=== PATIENT | female | born 1960 | race Caucasian/White ===

== ENCOUNTER 2017-02-08 08:04 | Day surgery (SDC) | payer BC ==
[~2017-02-08 08:04] MED LIST: Buffered Lidocaine 0.9% SYRIN* 5 ML/SYR SYRINGE INTRADERM ONE
[2017-02-08] MEDS ORDERED: ceFAZolin 2 GM PREMIX (*) 2 GM/50 ML BAG IVPB ONE (08:12)
[2017-02-08] MEDS ORDERED: Midazolam* 1 MG/ML 2 ML VIAL (2 MG) ONE ×2 (08:53→09:27)
[2017-02-08] MEDS ORDERED: fentaNYL* 50 MCG/ML 2 ML VIAL (100 MCG VIAL) ONE (08:53)
[2017-02-08] MEDS ORDERED: Famotidine IV* 10 MG/ML 2 ML (20 mg) ONE (09:10)
[2017-02-08] MEDS ORDERED: Bupivacaine 0.25% SDV* 30 ML ONE (09:12)
[2017-02-08] MEDS ORDERED: BSS OPTH.SOL* BTL ONE (09:12)
[2017-02-08] MEDS ORDERED: Methylene Blue 0.5 %* 50 MG/10 ML AMP IV ONE (09:12)
[2017-02-08] MEDS ORDERED: Lidocaine 1% MPF wEPI 200,000* 30 ML SDV ONE (09:12)
[2017-02-08] MEDS ORDERED: KETAMINE HCL* 50 MG/ML 10 ML VIAL ONE (09:25)
[2017-02-08] MEDS ORDERED: Lidocaine 2% PF * 5 ML VIAL ONE (09:26)
[2017-02-08] MEDS ORDERED: Propofol* 10 MG/ML 20 ML BTL IV PUSH ONE (09:26)
[2017-02-08] MEDS ORDERED: diPHENhydraMINE MDV* 50 MG/ML VIAL ONE (09:26)
[2017-02-08] MEDS ORDERED: HYDROcodone/ACETAMIN 5-325 MG* 1 TAB PO PRN (10:04)
[2017-02-08] MEDS ORDERED: DiMENhydriNATE IV* 50 MG/ML VIAL IV PUSH PRN (10:04)
[2017-02-08] MEDS ORDERED: Acetaminophen TAB* 325 MG PO PRN (10:04)
[2017-02-08] MEDS ORDERED: PROCHLORPERAZINE INJ 5 MG/ML 2 ML VIAL IV PRN (10:04)
[2017-02-08] MEDS ORDERED: Dexamethasone IV* 4 MG/ML 1 ML (4 MG) ONE (10:05)
[2017-02-08 11:24] VITALS: BP 124/89
== END 2017-02-08 11:10 | disposition home or self-care (01) ==
LOC: OREAST 08:04
PROVIDERS: ATTEND Plastic Surgery
DX: M95.0 Acquired deformity of nose (principal); Z85.828 Personal history of other malignant neoplasm of skin; I10 Essential (primary) hypertension; E03.9 Hypothyroidism, unspecified; K21.9 Gastro-esophageal reflux disease without esophagitis; G43.909 Migraine, unspecified, not intractable, without status migrainosus; Z79.82 Long term (current) use of aspirin
CPT/HCPCS: A9270-GY; J0690; J1100; J1200; J2001; J2250; J2704; J3010

== ENCOUNTER 2017-08-26 13:24 | Emergency (ER) | payer BC ==
[2017-08-26 14:15] VITALS: BP 130/83
--- NOTE | 2017-08-26 14:38 | UC ---
Respiratory Complaint HPI - HPI Summary HPI Summary: Patient presents with complaints of 1-2 months intermittent episodes of coughing , chest congestion, and sputum production. She states she was recently treated with amoxicillin which helped temporarily. She states within the last 1-3 days her coughing has become more persistent, with increased yellow-greenish sputum and nasal discharge. She reports she has been having coughing fits, the coughing causes a short duration of headache and fatigue. Today she had increase fatigue and she states it took he all day just to get here. She denies chest pain, shortness of breath. - History of Current Complaint Chief Complaint: UCRespiratory Stated Complaint: COUGH, AND CHEST CONGESTION Time Seen by Provider: 08/26/17 14:09 Hx Obtained From: Patient Hx Last Menstrual Period: 03/24/14 Onset/Duration: Sudden Onset Timing: Intermittent Episodes Pain Intensity: 0 Character: Cough: Productive, Sputum Description: - yello-greenish Aggravating Factors: Deep Breaths, Recumbent Position Alleviating Factors: Upright Position Associated Signs And Symptoms: Positive: URI, Nasal Congestion, Sinus Discomfort - Risk Factors Pulmonary Embolism Risk Factors: Negative Cardiac Risk Factors: Negative Pseudomonas Risk Factors: Negative Tuberculosis Risk Factors: Negative - Allergies/Home Medications Allergies/Adverse Reactions: Allergies Allergy/AdvReac Type Severity Reaction Status Date / Time No Known Allergies Allergy Verified 08/26/17 14:15 Home Medications: Home Medications Cholecalciferol TAB* [Vitamin D TAB*] 4,000 unit PO DAILY 08/26/17 [History Confirmed 08/26/17] Losartan TAB* [Cozaar TAB*] 50 mg PO DAILY 08/26/17 [History Confirmed 08/26/17] PMH/Surg Hx/FS Hx/Imm Hx Previously Healthy: Yes Endocrine History: Hypothyroidism Cardiovascular History: Hypertension GI/ History: Gastroesophageal Reflux - Surgical History Surgical History: Yes Surgery Procedure, Year, and Place: Bilateral carpel tunnel release, 1999, 2000 , [facility] [place]. Exploratory laporotomy, 1979, [facility]. fatty calcium cyst removed from neck area - Family History Known Family History: Positive: Hypertension - Social History Occupation: Employed Full-time Lives: Alone Alcohol Use: Rare Substance Use Type: None Smoking Status (MU): Never Smoked Tobacco - Immunization History Most Recent Influenza Vaccination: 12/2014 Most Recent Tetanus Shot: unknown Most Recent Pneumonia Vaccination: never Review of Systems Constitutional: Negative Skin: Negative Eyes: Negative ENT: Sinus Congestion, Sinus Pain/Tenderness Respiratory: Cough Cardiovascular: Negative Gastrointestinal: Negative Genitourinary: Negative Motor: Negative Neurovascular: Negative Musculoskeletal: Negative Neurological: Negative Psychological: Negative Is Patient Immunocompromised?: No All Other Systems Reviewed And Are Negative: Yes Physical Exam Triage Information Reviewed: Yes Appearance: Well-Appearing Vital Signs: Initial Vital Signs Temp 98.7 F 08/26/17 14:10 Pulse 71 08/26/17 14:10 Resp 16 08/26/17 14:10 BP 130/83 08/26/17 14:10 Pulse Ox 98 08/26/17 14:10 Vital Signs Reviewed: Yes Eye Exam: Normal ENT Exam: Normal ENT: Positive: Nasal congestion, Nasal drainage Neck exam: Normal Neck: Positive: 1 Respiratory Exam: Normal Cardiovascular Exam: Normal Abdominal Exam: Normal Musculoskeletal Exam: Normal Neurological Exam: Normal Skin Exam: Normal UC Diagnostic Evaluation - Laboratory O2 Sat by Pulse Oximetry: 98 Respiratory Course/Dx - Course Course Of Treatment: Patient presents with 1-2 months of intermittent episodes on respiratory complaints. She had xray today was negative, which was reviewed with the patient. Her clinical findings are consistent with bronchitis. She was treated with doxycycline 100 mg by mouth twice daily x 10 days, medrol dose pack, tessalon pearls 100 mg by mouth three times daily as needed, and albuterol hft 1-2 inhalation every 4-6 hours as needed. She was also referred to an automated teller manager as her symptoms given they are labile, and she has already be prescribed sinulair i feel she woud benefit from an allergy consult. - Differential Dx/Diagnosis Differential Diagnosis/HQI/PQRI: Bronchitis Provider Diagnoses: bronchitis. suspect reactive airway Discharge - Sign-Out/Discharge Documenting (check all that apply): Discharge/Admit/Transfer - Discharge Plan Condition: Stable Disposition: HOME Prescriptions: Albuterol HFA INHALER* [Ventolin HFA Inhaler*] 1 puff INH Q4H PRN #1 mdi PRN Reason: Cough Benzonatate CAP* [Tessalon 100 MG CAP*] 100 mg PO TID PRN #14 cap PRN Reason: couhg DOXYcycline CAP(*) [DOXYcycline 100MG CAP(*)] 100 mg PO BID #20 cap methylPREDNISolone [Medrol Dosepak 4 MG*] 0 mg PO .SEE JF INSTRUCTION #1 tab Patient Education Materials: Acute Bronchitis (ED) Referrals: Joel Rosado MD [Primary Care Provider] - Christiano Alfred MD [Medical Doctor] - - Billing Disposition and Condition Condition: STABLE Disposition: HOME
--- NOTE | 2017-08-26 14:48 | RAD ---
INDICATION: Cough COMPARISON: February 10, 2015 TECHNIQUE: PA and lateral dual-energy views were obtained. FINDINGS: Bones/Soft Tissues: There are no acute bony findings. There is a scoliotic deformity. There is spurring of the midthoracic spine Cardiomediastinal: The cardiomediastinal silhouette is normal. Lungs: There are no infiltrates. Pleura: There are no pleural effusions. Other: None IMPRESSION: NO ACTIVE DISEASE.
== END 2017-08-26 15:00 | disposition home or self-care (01) ==
LOC: UCEAST 13:24
DX: J40 Bronchitis, not specified as acute or chronic (principal); R09.81 Nasal congestion; E03.9 Hypothyroidism, unspecified; I10 Essential (primary) hypertension; K21.9 Gastro-esophageal reflux disease without esophagitis
CPT/HCPCS: 71046; 99212; G0463

== ENCOUNTER 2017-12-30 14:16 | Emergency (ER) | payer BC ==
--- OUTSIDE RECORDS SUMMARY | 2017-12-30 14:20 | XMS REPORT | Continuity of Care Document ---
:1960 External Reference #:[id number] Author Name Joel Rosado MD Address [address] [place] [address] Care Team Providers Name Role Phone Joel Rosado MD Primary Care Physician Unavailable Payers Type Date Identification Numbers Payment Provider Subscriber Effective: Policy Number: [id number] Jairo Lucero 2013 Expires: 2016 Group Name: [employer] [address] [address] PayID: [id number] KENNETH Mitchell [id number] Effective: 2016 Policy Number: [id number] Laurence NICOLE Lucero Group Name: [employer] [address] [address] PayID: [id number] KENNETH Mitchell [id number] Onset: 2017 Policy Number: [id number] [employer] Darlyn Lucero PayID: [id number] [address] [place] [address] Onset: 2017 Policy Number: [id number] [employer] Darlyn Lucero PayID: [id number] 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 [employer] Tobacco Use Start: Unknown Never Smoked Cigarettes ETOH Use Denies alcohol use ETOH Use Rarely consumes alcohol Exercise Type/Frequency Does not exercise Allergies, Adverse Reactions, Alerts Date Description Reaction Status Severity Comments 11/01/2017 Seasonal Active Medications Medication Date Status Form Strength Qnty SIG Indications Ordering Provider Losartan 09/27/ Active Tablets 50mg 30tabs take one I10 Joel Potassium 2018 tablet by Alonzo mouth every MD day for high blood pressure Atenolol 02/05/ Active Tablets 50mg 45tabs 1/2 by Isi Rea mouth every , CASH POSTING REPRESENTATIVE-C D3 Maximum / Active Capsules 4000Unit 30caps 1 po qd Joel Strength 0000 MD Alonzo Aspir-81 / Active Tablets DR 81mg 1 by mouth Unknown 0000 every day Botox / Active Solution Injection Unknown 0000 Rec every 3 months Sumatriptan / Active Tablets 50mg take one Unknown Succinate 0000 tablet by mouth once at onset of migraine, may repeat every 1 to 2 hours if needed, no more than 4 tablets in 24 arley Synthroid / Active Tablets 50mcg 30tabs Take One Joel 0000 Tablet By Rubin Rosado Every MD Day Vitamin B12 / Active Tablets 2500mcg 1 by mouth Unknown 0000 Sub every day Omeprazole / Active Capsules 40mg 30caps Take One Joel [address] DR Capsule By Rubin Rosado Every MD Day Montelukast / Active Tablets 10mg 30tabs Take One Joel Sodium 0000 Tablet By Alonzo Mouth AT MD Bedtime Nifedipine ER 11/01/ Hx Tablets ER 60mg 30tabs 1 tab by I10 Joel 2017 - 24HR mouth every Alonzo, 12/06/ evening 2017 Prednisone 09/27/ Hx Tablets 20mg 20tabs take 3 tabs J30.1 Joel 2018 - by mouth x Alonzo, 11/01/ 3 days, 2018 then 2 tabs by mouth x 3 days, then 1 tab by mouth x 3 days then 1/2 tab by mouth x 4 days Penicillin V 08/14/ Hx Tablets 500mg 20tabs 1 tab by J04.0 Aj Potassium 2017 - mouth twice Ronel 09/27/ daily for III, CASH POSTING REPRESENTATIVE-C 2018 10 days Naproxen 05/03/ Hx Tablets 375mg 60tabs Take 1 Joel 2018 - tablet by Alonzo, 11/01/ mouth every 2017 12 hours as needed for pain pv Vitamin D3 06/08/ Hx 30unit Take One Joel 2,000 Unit 2016 - s Capsule By JEFFERY Rosado 09/27/ Mouth Every 2017 Day Folic Acid 11/09/ Hx Capsules 400mg Joel 2015 - Alonzo, 2017 Atenolol / Hx Tablets 25mg 30tabs 1 by mouth Joel 0000 - every day Alonzo, 2016 Indomethacin / Hx Capsules 50mg 1 cap by Unknown 0000 - mouth every 05/03/ 8 hours for 2018 3-5 days. ok to stop taking if symptoms resolve earlier. Losartan / Hx Tablets 25mg 30tabs Take One Joel Potassium 0000 - Tablet By Alonzo, 11/01/ Mouth Every 2017 Day Benzonatate / Hx Capsules 150mg 1 tab by Unknown 0000 - mouth three 12/06/ times a day 2018 as needed Mucinex DM / Hx Tablets ER 30-600mg 1 by mouth Unknown 0000 - 12HR twice a day 2017 Immunizations CPT Code Status Date Vaccine Lot # [id number] Given 11/23/2016 Tdap (Adacel) [id number] Given 11/23/2016 Influenza Virus Vaccine, Quadrivalent, 3 Yr > [id number] Quad, Preserv Free 48882 Given 12/15/2015 Influenza Virus Vaccine, Quadrivalent, 3 Yr > Quad, Preserv Free Vital Signs Date Vital Result Comment 12/06/2017 4:24pm Weight 209.00 lb Weight 94.802 kg BP Systolic 120 mmHg BP Diastolic 80 mmHg Heart Rate 76 /min Body Temperature 98.9 F Respiratory Rate 16 /min Height 64.5 inches 5'4.50" BMI (Body Mass Index) 35.3 kg/m2 11/01/2017 1:58pm Weight 215.00 lb Weight 97.524 kg BP Systolic 135 mmHg BP Diastolic 100 mmHg Heart Rate 64 /min Body Temperature 98.8 F O2 % BldC Oximetry 98 % 09/27/2017 2:56pm Weight 211.00 lb Weight 95.710 kg BP Systolic 162 mmHg BP Diastolic 98 mmHg Heart Rate 70 /min Body Temperature 99.1 F Respiratory Rate 18 /min O2 % BldC Oximetry 97 % 08/14/2017 4:30pm Weight 210.62 lb Weight 95.540 kg BP Systolic 148 mmHg recheck 138/92 BP Diastolic 100 mmHg recheck 138/92 Heart Rate 72 /min Body Temperature 99.0 F Respiratory Rate 18 /min O2 % BldC Oximetry 99 % Ra 05/03/2017 5:00pm Weight 198.00 lb Weight 89.813 kg BP Systolic 130 mmHg BP Diastolic 90 mmHg Heart Rate 64 /min Body Temperature 96.9 F Respiratory Rate 16 /min 01/11/2017 1:11pm Weight 150.00 lb Weight 68.040 kg BP Systolic 138 mmHg BP Diastolic 96 mmHg Heart Rate 68 /min Body Temperature 97.6 F Respiratory Rate 16 /min 01/03/2017 3:19pm Weight 200.00 lb Weight 90.720 kg BP Systolic 110 mmHg BP Diastolic 82 mmHg Heart Rate 60 /min Body Temperature 97.3 F Respiratory Rate 14 /min 12/19/2016 5:07pm Weight 195.00 lb Weight 88.452 kg BP Systolic 120 mmHg BP Diastolic 78 mmHg Heart Rate 72 /min Body Temperature 97.0 F Respiratory Rate 16 /min 11/23/2016 3:53pm Weight 200.00 lb Weight 90.720 kg BP Systolic 120 mmHg BP Diastolic 80 mmHg Heart Rate 62 /min Body Temperature 96.3 F Ibuprofen at 330 Respiratory Rate 14 /min Height 64.5 inches 5'4.50" BMI (Body Mass Index) 33.8 kg/m2 09/13/2016 4:46pm Weight 199.00 lb Weight 90.266 kg BP Systolic 120 mmHg BP Diastolic 82 mmHg Heart Rate 72 /min Body Temperature 98.5 F Respiratory Rate 12 /min 07/05/2016 5:13pm Weight 197.00 lb Weight 89.359 kg BP Systolic 90 mmHg BP Diastolic 60 mmHg Heart Rate 70 /min Body Temperature 99.0 F Respiratory Rate 12 /min 12/23/2015 3:54pm Weight 199.00 lb Weight 90.266 kg BP Systolic 100 mmHg BP Diastolic 70 mmHg Heart Rate 71 /min Body Temperature 98.5 F Respiratory Rate 12 /min O2 % BldC Oximetry 98 % 11/10/2015 4:38pm Weight 198.00 lb Weight 89.813 kg BP Systolic 120 mmHg BP Diastolic 80 mmHg Heart Rate 64 /min Body Temperature 97.0 F motrin at 1pm Respiratory Rate 16 /min Height 67 inches 5'7" BMI (Body Mass Index) 31.0 kg/m2 Results Test Date Facility Test Result H/L Range Note CBC Auto Diff 09/27/2017 [facility] White Blood 7.8 10^3/uL 3.5-10.8 [phone] Count Red Blood Count 4.25 10^6/uL 4.00-5.40 Hemoglobin 13.7 g/dL 12.0-16.0 Hematocrit 38 % 35-47 Mean Corpuscular Volume 91 fL 80-97 Mean Corpuscular Hemoglobin 32 pg High 27-31 Mean Corpuscular HGB Conc 36 g/dL 31-36 Red Cell Distribution Width 13 % 10.5-15 Platelet Count 321 10^3/uL 150-450 Mean Platelet Volume 8.6 um3 7.4-10.4 Abs Neutrophils 3.9 10^3/uL 1.5-7.7 Abs Lymphocytes 3.1 10^3/uL 1.0-4.8 Abs Monocytes 0.5 10^3/uL 0-0.8 Abs Eosinophils 0.2 10^3/uL 0-0.6 Abs Basophils 0 10^3/uL 0-0.2 Abs Nucleated RBC 0 10^3/uL Granulocyte % 50.6 % 38-83 Lymphocyte % 39.3 % 25-47 Monocyte % 6.5 % 0-7 Eosinophil % 3.1 % 0-6 Basophil % 0.5 % 0-2 Nucleated Red Blood Cells % 0.1 Laboratory test 09/27/2017 [facility] C Reactive 4.75 mg/L <8.01 1 finding [phone] Protein Laboratory test 01/04/2017 [facility] Surgical SEE RESULT 2, 3 finding [phone] Pathology BELOW Lipid Profile 11/23/2016 [facility] Triglycerides 106 mg/dL 4 (Trig/Chol/HDL) [phone] Cholesterol 211 mg/dL 5 HDL Cholesterol 54.1 mg/dL 6 LDL Cholesterol 136 mg/dL 7 Laboratory test 11/23/2016 [facility] Hemoglobin A1c 5.4 % Less than 8 finding [phone] (Glyco HGB) 6.0 CBC Auto Diff 11/23/2016 [facility] White Blood 8.6 3.5-10.8 [phone] Count 10^3/uL Red Blood Count 4.16 10^6/uL 4.0-5.4 Hemoglobin 13.2 g/dL 12.0-16.0 Hematocrit 38 % 35-47 Mean Corpuscular Volume 92 fL 80-97 Mean Corpuscular Hemoglobin 32 pg High 27-31 Mean Corpuscular HGB Conc 35 g/dL 31-36 Red Cell Distribution Width 13 % 10.5-15 Platelet Count 262 10^3/uL 150-450 Mean Platelet Volume 9 um3 7.4-10.4 Abs Neutrophils 5.4 10^3/uL 1.5-7.7 Abs Lymphocytes 2.4 10^3/uL 1.0-4.8 Abs Monocytes 0.5 10^3/uL 0-0.8 Abs Eosinophils 0.2 10^3/uL 0-0.6 Abs Basophils 0.1 10^3/uL 0-0.2 Abs Nucleated RBC 0 10^3/uL Granulocyte % 63.0 % 38-83 Lymphocyte % 27.8 % 25-47 Monocyte % 6.3 % 1-9 Eosinophil % 2.2 % 0-6 Basophil % 0.7 % 0-2 Nucleated Red Blood Cells % 0 Comp Metabolic Panel 11/23/2016 [facility] Sodium 142 mmol/L 133-145 [phone] Potassium 3.8 mmol/L 3.5-5.0 Chloride 106 mmol/L 101-111 Co2 Carbon Dioxide 29 mmol/L 22-32 Anion Gap 7 mmol/L 2-11 Glucose 101 mg/dL High 70-100 Blood Urea Nitrogen 14 mg/dL 6-24 Creatinine 1.01 mg/dL High 0.51-0.95 BUN/Creatinine Ratio 13.9 8-20 Calcium 9.7 mg/dL 8.6-10.3 Total Protein 6.9 g/dL 6.4-8.9 Albumin 4.9 g/dL 3.2-5.2 Globulin 2.0 g/dL 2-4 Albumin/Globulin Ratio 2.5 1-3 Total Bilirubin 0.40 mg/dL 0.2-1.0 Alkaline Phosphatase 54 U/L 34-104 Alt 22 U/L 7-52 Ast 27 U/L 13-39 Egfr Non- 56.5 >60 Egfr 72.7 >60 9 Laboratory test 11/23/2016 [facility] Vitamin D 43.9 ng/mL 30-50 10 finding [phone] Total 25(Oh) Hepatitis C Antibody Nonreactive Nonreactive 11 Laboratory test 11/01/2016 [facility] TSH (Thyroid 1.46 0.34-5.60 finding [phone] Stimulating mcIU/mL Horm) Free T4 0.93 ng/dL 0.61-1.12 Basic Metabolic 07/13/2016 [facility] Sodium 140 mmol /L 133-145 Panel [phone] Potassium 4.5 mmol/L 3.5-5.0 Chloride 104 mmol/L 101-111 Co2 Carbon Dioxide 31 mmol/L 22-32 Anion Gap 5 mmol/L 2-11 Glucose 91 mg/dL 70-100 Blood Urea Nitrogen 17 mg/dL 6-24 Creatinine 0.83 mg/dL 0.51-0.95 BUN/Creatinine Ratio 20.5 High 8-20 Calcium 9.4 mg/dL 8.6-10.3 Egfr Non- 70.9 >60 Egfr 91.1 >60 12 1 [id number] 2 [id number] 3 SEE RESULT BELOW Name: DARLYN LUCERO : [address]: Truong Platt MD Acct: [id number] Unit: [id number] AGE: 56 Location: [facility] Re01/04/17 SEX: F Status: REG REF SPEC: [id number] SHERITA: 01/04/17 [facility] DR: Truong Platt MD REQ: [id number] RECD: 01/04/17 STATUS: JOSE ROGER DR: Joel Haider MD _ ORDERED: LEVEL 4 COMMENTS: [id number] FINAL DIAGNOSIS Skin, left superior lateral nasal tip, incisional biopsy: -- Basal cell carcinoma, infiltrating pattern. -- Basal carcinoma present at the oriented deep and lateral margins. CLINICAL HISTORY Non-healing lesion PRE-OPERATIVE DIAGNOSIS Basal cell carcinoma/squamous cell carcinoma GROSS DESCRIPTION The specimen is received in formalin labeled, Incisional Biopsy Skin Lesion Left Superior Lateral Nasal Tip, and consists of a 0.4 x 0.3 cm vivar-white spiculated to papilliferous skin wedge excised to a depth 0.2 cm, which is inked, bisected and entirely submitted in one cassette. Signed (signature on file) Giovanny Muñoz MD [id number] END OF REPORT * ML=Testing performed at Main Lab DEPARTMENT OF PATHOLOGY, [address] [place] [address] Giovanny Muñoz M.D. Director [facility] # [id number] 4 Desirable <150 Borderline high 150-199 High 200-499 Very High >500 5 Desirable <200 Borderline high 200-239 High >239 6 Low <40 Desirable: 40-60 High: >60 7 Desirable: <100 mg/dL Near Optimal: 100-129 mg/dL Borderline High: 130-159 mg/dL High: 160-189 mg/dL Very High: >189 mg/dL 8 Therapeutic target for the treatment of diabetes Mellitus patients is <7% HBA1C, and in selective patients <6.0%.Please refer to [place] [employer] Diabetic care guidelines for further information. 9 Because ethnic data is not always readily available, this report includes an eGFR for both -Americans and non- Americans. The National Kidney Disease Education Program (NKDEP) does not endorse the use of the MDRD equation for patients that are not between the ages of 18 and 70, are , have extremes of body size, muscle mass, or nutritional status, or are non- or non-. According to the National Kidney Foundation, irrespective of diagnosis, the stage of the disease is based on the level of kidney function: Stage Description GFR(mL/min/1.73 m(2)) 1 Kidney damage with normal or decreased GFR 90 2 Kidney damage with mild decrease in GFR 60-89 3 Moderate decrease in GFR 30-59 4 Severe decrease in GFR 15-29 5 Kidney failure <15 (or dialysis) 10 [id number] 11 [id number] 12 Because ethnic data is not always readily available, this report includes an eGFR for both -Americans and non- Americans. The National Kidney Disease Education Program (NKDEP) does not endorse the use of the MDRD equation for patients that are not between the ages of 18 and 70, are , have extremes of body size, muscle mass, or nutritional status, or are non- or non-. According to the National Kidney Foundation, irrespective of diagnosis, the stage of the disease is based on the level of kidney function: Stage Description GFR(mL/min/1.73 m(2)) 1 Kidney damage with normal or decreased GFR 90 2 Kidney damage with mild decrease in GFR 60-89 3 Moderate decrease in GFR 30-59 4 Severe decrease in GFR 15-29 5 Kidney failure <15 (or dialysis) Procedures Description No Information Available Encounters Type Date Location Provider Dx Diagnosis Office Visit 11/01/2017 Blu Maldonado I10 Essential (primary) 2:00p MD [place] hypertension Office Visit 09/27/2017 Blu Maldonado J30.1 Allergic rhinitis 2:45p MD Alonzo due to pollen I10 Essential (primary) hypertension R05 Cough Office Visit 08/14/2017 4:15p [facility] Aj Rodney J04.0 Acute laryngitis III, CASH POSTING REPRESENTATIVE-C Office Visit 01/11/2017 1:00p Main Office Joel I88.9 Nonspecific MD [place]zo lymphadenitis, unspecified S30.861A Insect bite (nonvenomous) of abdominal wall, init encntr Office Visit 01/03/2017 Main Office Joel S46.101A Unsp injury of 3:00p MD [place]zo musc/fasc/tend long hd bicep, right arm, init Office Visit 12/19/2016 Main Office [facility] 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, soft tissue, and skin Office Visit 11/23/2016 Main Office Joel Z00.8 Encounter for other 3:30p MD [place] general examination R53.83 Other fatigue Z23 Encounter for immunization Office Visit 09/13/2016 4:15p Main Office Joel B02.9 Zoster without MD Al[place]zo complications Office Visit 07/05/2016 5:00p Main Office Joel M65.332 Trigger finger, MD [place] left middle finger L72.3 Sebaceous cyst Office Visit 12/23/2015 3:45p Main Office Joel Rosado, J06.9 Acute upper MD respiratory infection, unspecified Office Visit 11/10/2015 4:30p Main Office Joel Rosado, F43.20 Adjustment MD disorder, unspecified Z84.89 Family history of other specified conditions I10 Essential (primary) hypertension E03.9 Hypothyroidism, unspecified Plan of Treatment 12/06/2017 - Joel Rosado, MDM25.511 Pain in right shoulderComments:Several months of shoulder symptoms. Would like to try PT.Follow up:Refer to PT for shoulder painE03.9 Hypothyroidism, unspecifiedNew Labs:TSH (Thyroid Stim Horm), Ordered: 12/06/17ree T4 (Free Thyroxine), Ordered: 12/06/17ollow up:fasting labsZ00.8 Encounter for other general examinationNew Labs:Lipid Profile (Trig/ Chol/HDL), Ordered: 12/06/17Recommendations:proper diet and exercise are very important for overall health. You should eat at least 5 servings of fruits and vegetables every day, this can be fresh or frozen. You should try to get at least 24 grams of fiber in your diet each day, this can be found in whole grains like wheat, brown rice, oats, Quinoa and fruits and vegetables. You should choose lean proteins such as fish, poultry, beans and legumes. You also need at least 4 servings of calcium rich foods daily, this can be in a supplement, dairy or broccoli. You should get at least 30 minutes of exercise on a daily basis, choose activities that make you feel winded but still able to talk, you should sweat and your heart rate should go up. If you have chest pain you should stop. If you can not do thirty minutes of exercise then do what you can and work towards this goal.I10 Essential (primary) hypertensionNew Labs: Comp Metabolic Panel, Ordered: 12/06/17
[2017-12-30 14:28] VITALS: BP 144/80
--- NOTE | 2017-12-30 14:32 | UC ---
Complaint Female HPI - HPI Summary HPI Summary: notice hematuria last night also had pain pressure urgency last night, did take a left over amoxicillin---this morning notice pressure with urination no fevers chills nausea or vomiting - History Of Current Complaint Chief Complaint: UCGU Stated Complaint: BURNING URINATION Time Seen by Provider: 12/30/17 14:25 Hx Obtained From: Patient Hx Last Menstrual Period: 03/24/14 ?: No Onset/Duration: Sudden Onset, Lasting Days - 1, Still Present Timing: Constant Severity Initially: Moderate Severity Currently: Moderate Character: Burning, Cramping Aggravating Factor(s): Urination Alleviating Factor(s): Nothing Associated Signs And Symptoms: Positive: Negative - Allergies/Home Medications Allergies/Adverse Reactions: Allergies Allergy/AdvReac Type Severity Reaction Status Date / Time No Known Allergies Allergy Verified 12/30/17 14:28 Home Medications: Home Medications Ibuprofen TAB* [Advil TAB*] 600 mg PO Q6H PRN 12/30/17 [History Confirmed ] PMH/Surg Hx/FS Hx/Imm Hx Previously Healthy: No Cardiovascular History: Hypertension GI/ History: Gastroesophageal Reflux - Surgical History Surgical History: Yes Surgery Procedure, Year, and Place: Bilateral carpel tunnel release, 1999, 2000 , [facility] [place]. Exploratory laporotomy, 1979, [facility]. fatty calcium cyst removed from neck area - Family History Known Family History: Positive: Hypertension - Social History Occupation: Employed Full-time Lives: With Family Alcohol Use: Rare Substance Use Type: None Smoking Status (MU): Never Smoked Tobacco Have You Smoked in the Last Year: No - Immunization History Most Recent Influenza Vaccination: 12/2014 Most Recent Tetanus Shot: unknown Most Recent Pneumonia Vaccination: never Review of Systems Constitutional: Negative Skin: Negative Eyes: Negative ENT: Negative Respiratory: Negative Cardiovascular: Negative Gastrointestinal: Negative Genitourinary: Dysuria, Hematuria, Frequency, Urgency Motor: Negative Neurovascular: Negative Musculoskeletal: Negative Neurological: Negative Psychological: Negative Is Patient Immunocompromised?: No All Other Systems Reviewed And Are Negative: Yes Physical Exam Triage Information Reviewed: Yes Appearance: Well-Appearing, No Pain Distress, Well-Nourished Vital Signs Reviewed: Yes Eye Exam: Normal Eyes: Positive: Conjunctiva Clear ENT Exam: Normal ENT: Positive: Normal ENT inspection, Hearing grossly normal. Negative: Trismus , Muffled voice, Hoarse voice Dental Exam: Normal Neck exam: Normal Neck: Positive: Supple, Nontender, No Lymphadenopathy Respiratory Exam: Normal Respiratory: Positive: Chest non-tender, No respiratory distress, No accessory muscle use Cardiovascular Exam: Normal Cardiovascular: Positive: RRR, Pulses Normal, Brisk Capillary Refill Abdominal Exam: Normal Abdomen Description: Positive: No Organomegaly, Soft, Other: - suprapubic discomfort. Negative: CVA Tenderness (R), CVA Tenderness (L) Bowel Sounds: Positive: Present Musculoskeletal Exam: Normal Musculoskeletal: Positive: Strength Intact, ROM Intact, No Edema Neurological Exam: Normal Neurological: Positive: Alert, Muscle Tone Normal Psychological Exam: Normal Skin Exam: Normal Diagnostics - Laboratory Diagnostic Studies Completed/Ordered: u/a +2 hematuria Complaint Female Dx - Course Course Of Treatment: will culture urine, keflex, follow with pcp in 7-10 days to assure resolution - Differential Dx/Diagnosis Provider Diagnoses: hematuria, uti Discharge - Sign-Out/Discharge Documenting (check all that apply): Patient Departure All imaging exams completed and their final reports reviewed: No Studies - Discharge Plan Condition: Stable Disposition: HOME Patient Education Materials: Hematuria (ED), Urinary Tract Infection in Women ( ED), Hypertension (ED) Referrals: Joel Rosado MD [Primary Care Provider] - 2 Weeks - Billing Disposition and Condition Condition: STABLE Disposition: Home
== END 2017-12-30 15:06 | disposition home or self-care (01) ==
LOC: UCEAST 14:16
DX: N39.0 Urinary tract infection, site not specified (principal); R31.9 Hematuria, unspecified
CPT/HCPCS: 81003; 87086; 99212; G0463